=== PATIENT | female | born 1960 | race Caucasian/White ===

== ENCOUNTER 2017-01-05 16:27 | Emergency (ER) | payer OTHER ==
[2017-01-05 16:50] VITALS: BP 177/78; PULSE 91; TEMP 98.5; BMI 23.0
--- NOTE | 2017-01-05 17:01 | PDOC ---
History of Present Illness - General History Source: Patient Exam Limitations: No Limitations <Coy Lopez - Last Filed: 01/05/17 17:01> - General History Source: Patient, Old Records Exam Limitations: No Limitations - History of Present Illness Initial Comments: The patient is a 56 year old female with a significant past medical history of uterine prolapse s/p uncomplicated hysterectomy (post op 5 days) by Dr. Arabella Montana at [facility], who presents to the emergency department today for further evaluation of difficulty urinating for four hours. The patient states that after her surgery she was sent home with a Rock catheter and today the rock catheter was removed. Since the removal of the rock catheter she reports being unable to void. In the ED a Rock catheter was placed and patient reports immediately alleviation of associated pain. She is currently taking Bactrim prophylaxis as well as bethanechol. PCP: Dr. 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) Thyroid Disease: No - Surgical History Abdominal Surgery: No Appendectomy: No Cardiac Surgery: No Cholecystectomy: No Lung Surgery: No Neurologic Surgery: No Orthopedic Surgery: No - Psycho/Social/Smoking Cessation Hx Anxiety: No Suicidal Ideation: No Smoking History: Never smoked Have you smoked in the past 12 months: No Information on smoking cessation initiated: No Hx Alcohol Use: No Drug/Substance Use Hx: No Substance Use Type: None Hx Substance Use Treatment: No <Coy Lopez - Last Filed: 01/05/17 17:01> <Kavon Leonardo - Last Filed: 01/05/17 17:16> - Past Medical History Allergies/Adverse Reactions: Allergies Allergy/AdvReac Type Severity Reaction Status Date / Time Penicillins Allergy Severe Difficulty Verified 01/05/17 16:28 Breathing Home Medications: Ambulatory Orders Bethanechol Chloride [Urecholine -] 20 mg PO BID 01/05/17 Sulfamethoxazole/Trimethoprim [Bactrim Ds -] 1 tab PO DAILY 01/05/17 Review of Systems - Review of Systems Able to Perform ROS?: Yes Comments:: GENERAL/CONSTITUTIONAL: No fever or chills. No weakness. HEAD, EYES, EARS, NOSE AND THROAT: No change in vision. No ear pain or discharge. No sore throat. CARDIOVASCULAR: No chest pain or shortness of breath. RESPIRATORY: No cough, wheezing, or hemoptysis. GASTROINTESTINAL: No nausea, vomiting, diarrhea or constipation. GENITOURINARY: (+) Difficulty urinating. No dysuria, frequency, or change in urination. MUSCULOSKELETAL: No joint or muscle swelling or pain. No neck or back pain. SKIN: No rash NEUROLOGIC: No headache, vertigo, loss of consciousness, or change in strength/ sensation. ENDOCRINE: No increased thirst. No abnormal weight change. HEMATOLOGIC/LYMPHATIC: No anemia, easy bleeding, or history of blood clots. ALLERGIC/IMMUNOLOGIC: No hives or skin allergy. <Kavon Leonardo - Last Filed: 01/05/17 17:16> *Physical Exam - Vital Signs Last Vital Signs Temp Pulse Resp BP Pulse Ox 98.5 F 91 H 18 177/78 100 01/05/17 16:27 01/05/17 16:27 01/05/17 16:27 01/05/17 16:27 01/05/17 16:27 <Coy Lopez - Last Filed: 01/05/17 17:01> - Vital Signs Last Vital Signs Temp Pulse Resp BP Pulse Ox 98.5 F 91 H 18 177/78 100 01/05/17 16:27 01/05/17 16:27 01/05/17 16:27 01/05/17 16:27 01/05/17 16:27 - Physical Exam Comments: GENERAL: Awake, alert, and fully oriented, in no acute distress HEAD: No signs of trauma EYES: PERRLA, EOMI, sclera anicteric, conjunctiva clear ENT: Auricles normal inspection, hearing grossly normal, nares patent, oropharynx clear without exudates. Moist mucosa NECK: Normal ROM, supple, no lymphadenopathy, JVD, or masses LUNGS: Breath sounds equal, clear to auscultation bilaterally. No wheezes, and no crackles HEART: Regular rate and rhythm, normal S1 and S2, no murmurs, rubs or gallops ABDOMEN: Soft, nontender, normoactive bowel sounds. No guarding, no rebound. No masses GENITOURINARY: (+) With Rock catheter EXTREMITIES: Normal range of motion, no edema. No clubbing or cyanosis. No cords, erythema, or tenderness NEUROLOGICAL: Cranial nerves II through XII grossly intact. Normal speech, normal gait SKIN: Warm, Dry, normal turgor, no rashes or lesions noted. <Kavon Leonardo - Last Filed: 01/05/17 17:16> Medical Decision Making - Medical Decision Making 01/05/17 16:58 A portion of this note was documented by scribe services under my direction. I have reviewed the details of the note, within reason, and agree with the documentation with the following case summary and management plan written by me. Patient treated in the ED. Nursing notes are reviewed and incorporated into the medical decision-making. Vital signs reviewed. Peripheral IV access obtained by the nurse, laboratory studies are drawn and sent, reviewed and interpreted by myself. Vital Signs Temp Pulse Resp BP Pulse Ox 98.5 F 91 H 18 177/78 100 01/05/17 16:27 01/05/17 16:27 01/05/17 16:27 01/05/17 16:27 01/05/17 16:27 56-year-old female with past medical history uterine prolapse status post hysterectomy postop day [facility] at [facility] by . The patient had an uncompensated hysterectomy and was sent home with the Rock catheter. Today, the patient had the Rock catheter removed. However, patient was unable to void for approximately 4 hours. Catheter was placed and approximately 100 mL were drained. Patient now reports feeling better. She is currently taking Bactrim prophylaxis as well as bethanechol. Patient has a point with her doctor and her doctor's aware that she has a new Rock catheter placed according to the patient (she left a message). We'll discharge with Rock catheter and have the patient follow up with her doctor. I discussed the physical exam findings, ancillary test results and final diagnoses with the patient. I answered all of the patient's questions. The patient was satisfied with the care received and felt comfortable with the discharge plan and treatment plan. The patient will call their primary care physician within 24 hours to arrange follow-up and will return to the Emergency Department with any new, persistant or worsening symptoms. <Coy Lopez - Last Filed: 01/05/17 17:01> *DC/Admit/Observation/Transfer - Discharge Dispostion Admit: No <Coy Lopez - Last Filed: 01/05/17 17:01> - Attestations Scribe Attestion: Documentation prepared by Kavon Leonardo, acting as medical secretary teacher for Coy Lopez MD. <Kavon Leonardo - Last Filed: 01/05/17 17:16> Diagnosis at time of Disposition: Urinary retention - Discharge Dispostion Disposition: HOME Condition at time of disposition: Improved - Patient Instructions Printed Discharge Instructions: DI for Urinary Retention in Women Additional Instructions: You have a new rock catheter. Please take your medications as prior. Follow up with your doctor in regards to when the catheter will be taken out.
== END 2017-01-05 17:08 | disposition home or self-care (01) ==
LOC: FER 16:27
PROC: 0T9B70Z Drainage of Bladder with Drainage Device, Via Natural or Artificial Opening (ICD-10-PCS; principal; 2017-01-05)
DX: R33.9 Retention of urine, unspecified (principal); N85.9 Noninflammatory disorder of uterus, unspecified
CPT/HCPCS: 99282-25

== ENCOUNTER 2017-01-11 22:30 | Emergency (ER) | payer OTHER ==
[2017-01-11 22:40] VITALS: BP 165/101; PULSE 72; TEMP 98; BMI 23.3
--- NOTE | 2017-01-11 23:04 | PDOC ---
History of Present Illness - General Chief Complaint: Urinary Problem Stated Complaint: UNABLE TO URINATE Time Seen by Provider: 01/11/17 22:36 History Source: Patient Exam Limitations: No Limitations - History of Present Illness Initial Comments: 01/11/17 23:02 This is a 56-year-old female with history of urinary retention who comes in status post having her catheter removed today and now is in acute urinary retention again. Patient denies any fever chills or any other additional symptoms. Patient was examined after Workman was placed and approximately 1000 mL the urine had drained PAST MEDICAL HISTORY: no significant history PAST SURGICAL HISTORY: no significant history FAMILY HISTORY: no pertinant history SOCIAL HISTORY: Pt lives with family and is employed. MEDICATIONS: reviewed ALLERGIES: As per nursing notes Review of Systems General: No fevers or chills, no weakness, no weight loss HEENT: No change in vision. No sore throat,. No ear pain CardioVascular: No chest pain or shortness of breath Respiratory:No cough, or wheezing. Gastrointestinal: no nausea, vomitting, diarrhea or constipation, No rectal bleeding Genitourinary: No dysuria, hematuria, or frequency, urinary retention as per history of present illness Musculoskeletal: No joint or muscle pain or swelling Neurologic: No headache, vertigo, dizziness or loss of consciousness Psychiatric: nor depression Skin: No rashes or easy bruising Endocrine: no increased thirst or abnormal weight change Allergic: no skin or latex allergy All other systems reviewed and normal GENERAL: The patient is awake, alert, and fully oriented, in no acute distress. HEAD: Normal with no signs of trauma. EYES: Pupils equal, round and reactive to light, extraocular movements intact, sclera anicteric, conjunctiva clear. Abdomen: Soft nontender, normal bowel sounds Back: There is no CVA tenderness EXTREMITIES: Normal range of motion, no edema. NEUROLOGICAL: Normal speech, normal gait. PSYCH: Normal mood, normal affect. SKIN: Warm, Dry, normal turgor, no rashes or lesions noted. Assessment and plan: This is a 56-year-old female came in in urinary retention. Patient has a history urinary retention had a Workman removed today and that is again in urinary retention. Workman was placed patient drained proximal 1000 mL of urine leg bag was placed and patient discharged home will follow-up with her urologist tomorrow Past History - Past Medical History Allergies/Adverse Reactions: Allergies Allergy/AdvReac Type Severity Reaction Status Date / Time Penicillins Allergy Severe Difficulty Verified 01/11/17 22:32 Breathing Home Medications: Ambulatory Orders Bethanechol Chloride [Urecholine -] 20 mg PO BID 01/05/17 Sulfamethoxazole/Trimethoprim [Bactrim Ds -] 1 tab PO DAILY 01/05/17 Anemia: No Asthma: No Cancer: No Cardiac Disorders: No CVA: No COPD: No CHF: No Dementia: No Diabetes: No GI Disorders: No Disorders: Yes (KIDNEY STONES, S/P LITHOTRIPSY) HTN: No Hypercholesterolemia: No Liver Disease: No Seizures: Yes (CHILDHOOD, SECONDARY TO TRAUMA, 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) Thyroid Disease: No Other medical history: HYSTERECTOMY 12/31/2016 - Surgical History Abdominal Surgery: No Appendectomy: No Cardiac Surgery: No Cholecystectomy: No Lung Surgery: No Neurologic Surgery: No Orthopedic Surgery: No - Psycho/Social/Smoking Cessation Hx Anxiety: No Suicidal Ideation: No Smoking History: Never smoked Have you smoked in the past 12 months: No Information on smoking cessation initiated: No Hx Alcohol Use: No Drug/Substance Use Hx: No Substance Use Type: None Hx Substance Use Treatment: No *Physical Exam - Vital Signs Last Vital Signs Temp Pulse Resp BP Pulse Ox 98 F 72 22 165/101 100 01/11/17 22:34 01/11/17 22:34 01/11/17 22:34 01/11/17 22:34 01/11/17 22:34 *DC/Admit/Observation/Transfer Diagnosis at time of Disposition: Urinary retention - Discharge Dispostion Disposition: HOME Condition at time of disposition: Stable Admit: No - Patient Instructions Additional Instructions: Wear the leg bag and follow-up with your urologist in the morning. Return to the emergency department immediately with ANY new, persistent or worsening symptoms. Continue any medications as previously prescribed by your physician. You should follow up with your primary doctor as soon as possible regarding today's emergency department visit. . Please make sure your doctor reviews the results of your emergency evaluation. Thank you for coming to the Emergency Department today for your care. It was a pleasure to see you today. Please note that your evaluation is INCOMPLETE until you follow-up with your doctor.
== END 2017-01-11 23:15 | disposition home or self-care (01) ==
LOC: FER 22:30
PROC: 0T9B70Z Drainage of Bladder with Drainage Device, Via Natural or Artificial Opening (ICD-10-PCS; principal; 2017-01-11)
DX: R33.9 Retention of urine, unspecified (principal); Z87.442 Personal history of urinary calculi
CPT/HCPCS: 99282-25

== ENCOUNTER 2017-01-14 00:38 | Emergency (ER) | payer OTHER ==
--- NOTE | 2017-01-14 00:48 | PDOC ---
History of Present Illness - General Chief Complaint: Urinary Catheter Problem Stated Complaint: URINARY RETENTION Time Seen by Provider: 01/14/17 00:43 History Source: Patient Exam Limitations: No Limitations - History of Present Illness Initial Comments: 01/14/17 00:45 This is a 56-year-old female who comes in complaining of acute urinary retention. I saw patient here in the emergency room several nights ago for the same thing. Patient said she had her catheter removed that we put in bed and her doctor showed her how to self catheterize herself. Patient however was unable to find the right whole and now comes in complaining of unable to urinate. PAST MEDICAL HISTORY: no significant history PAST SURGICAL HISTORY: no significant history FAMILY HISTORY: no pertinant history SOCIAL HISTORY: Pt lives with family and is employed. MEDICATIONS: reviewed ALLERGIES: As per nursing notes Review of Systems General: No fevers or chills, no weakness, no weight loss HEENT: No change in vision. No sore throat,. No ear pain CardioVascular: No chest pain or shortness of breath Respiratory:No cough, or wheezing. Gastrointestinal: no nausea, vomitting, diarrhea or constipation, No rectal bleeding Genitourinary: No dysuria, hematuria, or frequency Musculoskeletal: No joint or muscle pain or swelling Neurologic: No headache, vertigo, dizziness or loss of consciousness Psychiatric: nor depression Skin: No rashes or easy bruising Endocrine: no increased thirst or abnormal weight change Allergic: no skin or latex allergy All other systems reviewed and normal GENERAL: The patient is awake, alert, and fully oriented, in no acute distress. HEAD: Normal with no signs of trauma. EYES: Pupils equal, round and reactive to light, extraocular movements intact, sclera anicteric, conjunctiva clear. ABDOMEN: Soft slightly distended, normal bowel sounds EXTREMITIES: Normal range of motion, no edema. NEUROLOGICAL: Normal speech, normal gait. PSYCH: Normal mood, normal affect. SKIN: Warm, Dry, normal turgor, no rashes or lesions noted. Assessment and plan: This is a 56-year-old female with history of easy acute urinary retention post hysterectomy. Patient came in again in urinary retention and Workman placed with leg bag patient discharged will follow-up with her doctor Past History - Past Medical History Allergies/Adverse Reactions: Allergies Allergy/AdvReac Type Severity Reaction Status Date / Time Penicillins Allergy Severe Difficulty Verified 01/11/17 22:32 Breathing Home Medications: Ambulatory Orders Bethanechol Chloride [Urecholine -] 20 mg PO BID 01/05/17 Sulfamethoxazole/Trimethoprim [Bactrim Ds -] 1 tab PO DAILY 01/05/17 Anemia: No Asthma: No Cancer: No Cardiac Disorders: No CVA: No COPD: No CHF: No Dementia: No Diabetes: No GI Disorders: No Disorders: Yes (KIDNEY STONES, S/P LITHOTRIPSY) HTN: No Hypercholesterolemia: No Liver Disease: No Seizures: Yes (CHILDHOOD, SECONDARY TO TRAUMA, 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) Thyroid Disease: No - Surgical History Abdominal Surgery: No Appendectomy: No Cardiac Surgery: No Cholecystectomy: No Lung Surgery: No Neurologic Surgery: No Orthopedic Surgery: No - Psycho/Social/Smoking Cessation Hx Anxiety: No Suicidal Ideation: No Smoking History: Never smoked Have you smoked in the past 12 months: No Hx Alcohol Use: No Drug/Substance Use Hx: No Substance Use Type: None Hx Substance Use Treatment: No *DC/Admit/Observation/Transfer Diagnosis at time of Disposition: Urinary retention - Discharge Dispostion Disposition: HOME Condition at time of disposition: Good Admit: No - Patient Instructions Additional Instructions: Wear the leg bag and follow-up with your doctor. Return to the emergency department immediately with ANY new, persistent or worsening symptoms. Continue any medications as previously prescribed by your physician. You should follow up with your primary doctor as soon as possible regarding today's emergency department visit. . Please make sure your doctor reviews the results of your emergency evaluation. Thank you for coming to the Emergency Department today for your care. It was a pleasure to see you today. Please note that your evaluation is INCOMPLETE until you follow-up with your doctor.
[2017-01-14 01:04] VITALS: BP 135/90; PULSE 82; TEMP 98.2; BMI 23.9
[2017-01-14 02:12] LABS: URINE APPEARANCE CLEAR; URINE BILIRUBIN NEGATIVE (NEGATIVE); URINE BLOOD NEGATIVE (NEGATIVE); URINE COLOR COLORLESS; URINE GLUCOSE (UA) NEGATIVE (NEGATIVE); URINE KETONE NEGATIVE (NEGATIVE); URINE LEUK ESTERASE NEGATIVE (NEGATIVE); URINE NITRITE NEGATIVE (NEGATIVE); URINE PROTEIN NEGATIVE (NEGATIVE); URINE UROBILINOGEN NEGATIVE E.U./dl (0.2-1.0)
== END 2017-01-14 01:12 | disposition home or self-care (01) ==
LOC: FER 00:38
PROC: 0T9B70Z Drainage of Bladder with Drainage Device, Via Natural or Artificial Opening (ICD-10-PCS; principal; 2017-01-14)
DX: R33.9 Retention of urine, unspecified (principal); Z87.442 Personal history of urinary calculi
CPT/HCPCS: 81003; 99283-25

== ENCOUNTER 2023-05-30 12:40 | Emergency (ER) | payer OTHER ==
[2023-05-30 12:47] VITALS: TEMP 97.7; BMI 23.3
[2023-05-30] MEDS ORDERED: SODIUM CHLORIDE 0.9% 500 ML INFUS.BAG IV ONE (13:12)
[2023-05-30] MEDS ORDERED: MECLIZINE HCL 25 MG TABLET (FP) PO ONE (13:12)
[2023-05-30] MEDS ORDERED: ACETAMINOPHEN 1000 MG/100 ML BAG IVPB ONE (13:15)
[2023-05-30] MEDS ORDERED: METOCLOPRAMIDE HCL INJECTION 10 MG/2 ML VIAL IVPUSH ONE (13:15)
[2023-05-30] MEDS ORDERED: METOCLOPRAMIDE HCL INJECTION 10 MG/2 ML VIAL ONE (13:21)
[2023-05-30] MEDS ORDERED: ACETAMINOPHEN INJECTION 100 ML IVPB ONE (13:21)
[2023-05-30] MEDS ORDERED: MECLIZINE HCL 25 MG TABLET (FP) ONE (13:45)
[2023-05-30 14:00] LABS: HEMATOCRIT 42.3 % (32.4-45.2); HEMOGLOBIN 14.1 G/dL (10.7-15.3); MCH 30.4 pg (25.7-33.7); MCHC 33.4 g/dl (32.0-36.0); MEAN CELL VOLUME 91.1 fl (80-96); MEAN PLT VOLUME 8.2 fl (7.5-11.1); PLATELET COUNT 319.9 10^3/uL (134-434); RBC 4.64 10^6/uL (3.60-5.2); RDW 13.5 % (11.6-15.6); WHITE BLOOD COUNT 7.4 10^3/uL (4.0-10.8)
[2023-05-30 14:26] LABS: ALBUMIN 4.3 g/dl (3.4-5.0); BILIRUBIN,TOTAL 0.8 mg/dl (0.2-1); BLOOD UREA NITROGEN 18.5 mg/dl (7-18); CALCIUM 9.8 mg/dl (8.5-10.1); CREATININE 0.5 mg/dl (0.6-1.3); POTASSIUM 4.3 mmol/L (3.5-5.1); SGOT/AST 15.7 U/L (15-37); SGPT/ALT 15.4 U/L (7-52); TOT PROT 7.1 g/dl (6.4-8.2)
[2023-05-30 14:36] LABS: PLATELET ESTIMATE ADEQUATE
[2023-05-30 15:32] VITALS: BP 135/84; PULSE 75; RESP 14
== END 2023-05-30 15:47 | disposition home or self-care (01) ==
LOC: FER 12:40
PROC: 3E033NZ Introduction of Analgesics, Hypnotics, Sedatives into Peripheral Vein, Percutaneous Approach (ICD-10-PCS; principal; 2023-05-30)
PROC: 3E033GC Introduction of Other Therapeutic Substance into Peripheral Vein, Percutaneous Approach (ICD-10-PCS; 2023-05-30)
DX: R42 Dizziness and giddiness (principal); R51.9 Headache, unspecified; R00.2 Palpitations; R45.7 State of emotional shock and stress, unspecified
CPT/HCPCS: 36415; 80053; 84484; 85027; 93005; 99284-25

== ENCOUNTER 2024-06-06 21:23 | Emergency (ER) | payer OTHER ==
[2024-06-06 21:40] VITALS: BP 142/80; PULSE 77; RESP 16; TEMP 98.1; BMI 22.3
[2024-06-06 22:11] LABS: EPITHELIAL CELLS 0-5 /hpf
[2024-06-06] MEDS ORDERED: KETOROLAC TROMETHAMINE 30 MG/1 ML VIAL ONE (22:16)
[2024-06-06] MEDS: KETOROLAC TROMETHAMINE 60 MG/2 ML VIAL IM ONE (22:30)
== END 2024-06-07 01:15 | disposition home or self-care (01) ==
LOC: FER 21:23
PROC: 3E0133Z Introduction of Anti-inflammatory into Subcutaneous Tissue, Percutaneous Approach (ICD-10-PCS; principal; 2024-06-06)
DX: S43.402A Unspecified sprain of left shoulder joint, initial encounter (principal); R35.0 Frequency of micturition; X58.XXXA Exposure to other specified factors, initial encounter
CPT/HCPCS: 73030-TC-LT-FY; 81003; 81015; 87086; 99284-25